=== PATIENT | male | born 1980 | race Caucasian/White ===

== ENCOUNTER → 2017-01-26 | Outpatient (CLI) | payer BC ==
[~2017-01-26] MED LIST: AMOXICILLIN/CLA1 TA1 PO; DOXYCYCLINE 10100 MG PO; EXCEDRIN1 TAB PO; LORTAB 5/500 501 TAB PO; NO HOME MEDICATIONS; PENICILLIN V500 MG PO; PERCOCET 5/321 UDTAB PO; ULTRAM 50MG TAB50 MG PO
== END ==
LOC: COL.RAD 11:07
DX: N45.1 Epididymitis (principal); N43.3 Hydrocele, unspecified

== ENCOUNTER 2017-06-02 17:08 | Emergency (ER) | payer BC ==
[~2017-06-02] VITALS: Ht 162.6 cm; Wt 81.2 kg
[2017-06-02 17:13] VITALS: TEMP 97.9
[2017-06-02] MEDS ORDERED: EFFEXOR XR75 MG/CAP PO (17:48)
[2017-06-02] MEDS ORDERED: NEURONTIN300 MG/CAP PO (17:48)
[2017-06-02] MEDS ORDERED: MEVACOR 20M20 MG/TAB PO (17:48)
[2017-06-02] MEDS ORDERED: ERGOCALCIFER50000 IU PO (17:49)
[2017-06-02] MEDS ORDERED: KLONOPIN 0.5MG0.5 MG PO (17:49)
[2017-06-02] MEDS ORDERED: INDERAL 20MG20 MG PO (17:49)
[2017-06-02] MEDS ORDERED: TORADOL 10MG TA10 MG PO (17:50)
[2017-06-02] MEDS ORDERED: COMPAZINE 110 MG/TAB PO (17:51)
[2017-06-02] MEDS ORDERED: PRILOSEC 20MG20 MG PO (17:51)
[2017-06-02 20:00] VITALS: BP 143/83; PULSE 88
== END 2017-06-02 20:01 | disposition home or self-care (01) ==
LOC: COL.ER 17:08
DX: G43.909 Migraine, unspecified, not intractable, without status migrainosus (principal); I10 Essential (primary) hypertension; F43.10 Post-traumatic stress disorder, unspecified
CPT/HCPCS: J1200; J1630; J2405; J7030

== ENCOUNTER 2017-12-07 10:20 | Observation (INO) | payer BC ==
[~2017-12-07] VITALS: Ht 162.6 cm; Wt 84.2 kg
[~2017-12-07 10:20] MED LIST changes: +COMPAZINE 110 MG/TAB PO; +EFFEXOR XR75 MG/CAP PO; +ERGOCALCIFER50000 IU PO; +INDERAL 20MG20 MG PO; +KLONOPIN 0.5MG0.5 MG PO; +MEVACOR 20M20 MG/TAB PO; +NEURONTIN300 MG/CAP PO; +PRILOSEC 20MG20 MG PO; +TORADOL 10MG TA10 MG PO
[2017-12-07 11:11] LABS: BASO % 0.5 % (0.0-2.0); EOS # 0.4 (0.0-0.7); EOS % 4.7 % (0-4.0); GRAN # 5.9 (1.4-6.5); HEMATOCRIT 38.1 % (42.0-52.0); HEMOGLOBIN 13.9 g/dl (13.5-18.0); LYMPH # 1.7 (1.2-3.4); LYMPH % 19.5 % (20.0-51.0); MEAN CELL VOLUME 88 fl (80.0-100.0); MEAN CORPUSCULAR HEMOGLOBIN 32 pg (27.0-31.0); MEAN CORPUSCULAR HGB CONC 37 g/dl (33.0-37.0); MEAN PLATELET VOLUME 10.6 fl (7.4-10.4); MONO # 0.6 (0.1-0.6); PLATELET COUNT 255 K/mm3 (130-400); RED BLOOD COUNT 4.32 M/mm3 (4.20-5.60); REDCELL DISTRIBUTION WIDTH-CV 12.7 % (11.5-14.5)
[2017-12-07 11:17] LABS: PROTHROMBIN TIME 11.4 SECONDS (9.7-12.8)
[2017-12-07] MEDS ORDERED: PRINIVIL10 MG PO (11:19)
[2017-12-07 11:24] LABS: ALBUMIN 4.5 gm/dL (3.5-5.0); BILIRUBIN,TOTAL 0.3 mg/dL (0.0-1.0); C-REACTIVE PROTEIN 0.7 mg/dL (0.0-0.9); CALCIUM 9.1 mg/dL (8.4-10.2); CREATININE, serum 1.17 mg/dL (0.66-1.25); POTASSIUM 3.6 mmol/L (3.4-5.0); TOTAL PROTEIN 7.8 gm/dL (6.4-8.2)
[2017-12-07 17:38] VITALS: BP 112/80; PULSE 73; TEMP 98.7
[2017-12-07 19:29] VITALS: BP 116/74; PULSE 72
[2017-12-08 00:38] VITALS: BP 100/58; PULSE 69; TEMP 97.8
[2017-12-08 04:03] VITALS: BP 102/67; PULSE 63; TEMP 97.9
[2017-12-08 06:24] LABS: CHOLESTEROL RISK RATIO 5.8
[2017-12-08 06:51] VITALS: BP 111/69; PULSE 66; TEMP 98.4
[2017-12-08] MEDS ORDERED: ASPIRIN 32325 MG/TAB PO (09:59)
== END 2017-12-08 13:00 | disposition home or self-care (01) ==
LOC: COL.ER 10:20 → MEDICAL 13:11
PROVIDERS: Family Medicine
DX: G45.9 Transient cerebral ischemic attack, unspecified (principal); G43.909 Migraine, unspecified, not intractable, without status migrainosus; I10 Essential (primary) hypertension; E78.5 Hyperlipidemia, unspecified; K21.9 Gastro-esophageal reflux disease without esophagitis; I25.2 Old myocardial infarction; F17.210 Nicotine dependence, cigarettes, uncomplicated; Z88.8 Allergy status to other drugs, medicaments and biological substances
CPT/HCPCS: G0378; G8978-GP; G8979-GP; G8987-GO; G8988-GO; G8999-GN; G9186-GN; J1644

== ENCOUNTER → 2018-01-03 | Outpatient (CLI) | payer BC ==
[~2018-01-03] MED LIST changes: +ASPIRIN 32325 MG/TAB PO; +PRINIVIL10 MG PO
== END ==
LOC: COL.CARD 12:31
DX: G45.9 Transient cerebral ischemic attack, unspecified (principal)

== ENCOUNTER 2018-04-12 23:39 | Emergency (ER) | payer BC ==
[~2018-04-12] VITALS: Ht 162.6 cm; Wt 76.4 kg
[2018-04-12 23:58] VITALS: TEMP 98.1
[2018-04-13] MEDS ORDERED: PERCOCET 325 MG1 TA2 PO (01:19)
[2018-04-13 01:48] VITALS: BP 120/87; PULSE 87
== END 2018-04-13 01:48 | disposition home or self-care (01) ==
LOC: COL.ER 23:39
DX: N50.811 Right testicular pain (principal); I10 Essential (primary) hypertension; E78.5 Hyperlipidemia, unspecified; Z79.82 Long term (current) use of aspirin

== ENCOUNTER → 2019-05-01 | Outpatient (CLI) | payer BC ==
[~2019-05-01] MED LIST changes: +PERCOCET 325 MG1 TA2 PO; +PERCOCET 325 MG1 TA3 PO; +PERCOCET 325 MG1 TAB PO
== END ==
LOC: COL.RAD 07:48
DX: K21.0 Gastro-esophageal reflux disease with esophagitis (principal); K25.9 Gastric ulcer, unspecified as acute or chronic, without hemorrhage or perforation
CPT/HCPCS: A9541

== ENCOUNTER 2019-08-30 08:08 | Day surgery (SDC) | payer BC ==
[2019-08-30] VITALS (9 sets, daily range): BP systolic 115–145; BP diastolic 63–95; PULSE 68–92; TEMP 97.7–98.5
[~2019-08-30] VITALS: Ht 162.6 cm; Wt 84.1 kg
[2019-08-30] MEDS ORDERED: MINIPRESS 1M1 MG/CAP PO (09:41)
[2019-08-30] MEDS ORDERED: FIORICET 325 MG1 TA1 PO (09:41)
[2019-08-30] MEDS ORDERED: PROTONIX 40MG T40 MG PO (09:44)
[2019-08-30] MEDS ORDERED: AJOVY225 MG/1.5 SQ (09:48)
[2019-08-30] MEDS ORDERED: UBRELVY50 MG PO (09:52)
[2019-08-30] MEDS ORDERED: KLONOPIN 1MG1 MG PO (09:53)
[2019-08-30] MEDS ORDERED: VIAGRA100 M1 PO (09:54)
--- NOTE | 2019-08-30 15:50 | NUR ---
Patient resting in bed. He has done well post op. Pain managed now, after roxicodone. pain mostly in his neck, we reviewed gas pain. He was up and ambulated the halls per ERAS. Patient tolerating clear liquids. Robotic lap sites x6. He was able to void. Vitals stable. Scds ble. Iv to INt
--- NOTE | 2019-08-30 18:08 | NUR ---
Patient independent in room. Tolerated clear liquid tray. vitals stable. Int. Vitals stable.
[2019-08-31 00:29] VITALS: BP 103/61; PULSE 76; TEMP 98.5
--- NOTE | 2019-08-31 00:30 | NUR ---
Patient has been doing well. He has been up moving in the room and walked in the hallway before bed. Patient denies nausea. Stated feeing hungry, applesauce given. Not passing flatus yet. He started getting a migraine, home medications given for pain and sleep. One site was having increased drainage at shift change. Removed bandaide and placed gauze to site. No more drainage noted at this time. No other changes at this time. Call light within reach.
[2019-08-31 04:43] VITALS: BP 123/88; PULSE 84; TEMP 97.9
--- NOTE | 2019-08-31 06:31 | NUR ---
Patient did not sleep much during the night. He keeps having neck and shoulder pain. He denies nausea. He has been up in the room moving around. Explained his diet he will be getting this morning. No other changes at this time. Call light within reach.
[2019-08-31 06:59] VITALS: BP 103/54; PULSE 87; TEMP 98.3
--- NOTE | 2019-08-31 09:30 | NUR ---
Patient alert and oriented, answers questions appropriately. See assessment. Abdomen soft, non tender, non distended. Bowel sounds active x4 quads. No flatus. No bowel movement. Incision sites with edges well approximated, no redness or drainage noted. Post op exercises reviewed with patient. No c/o at this time.
--- NOTE | 2019-08-31 09:31 | NUR ---
JACE met with the patient to complete initial intake. The patient lives in [place] with his family. The patient has a cane due to knee problems he has had in the past and is independent with ADLs. The patient's PCP is Dr. Claros and receives medications from [facility] with no difficulties. The patient does not have advanced directives in the EMR but state they are completed and designate his Alysha. The patient plans to return home at discharge with Alysha providing transportation. There are no additional needs at this time.
[2019-08-31] MEDS ORDERED: ROXICODONE 55 MG/TAB PO (10:50)
--- NOTE | 2019-08-31 11:14 | NUR ---
Dr Quintero here to see patient.
[2019-08-31 12:00] VITALS: BP 129/87; PULSE 76; TEMP 98.9
--- NOTE | 2019-08-31 13:30 | NUR ---
Discharge instructions reviewed with patient, verbalized understanding. Discharged ambulatory to auto/home with family at 1330.
== END 2019-08-31 13:30 | disposition home or self-care (01) ==
LOC: SDCO 08:08 → SURG 13:20 → SDCO 08-31 13:30
DX: K21.9 Gastro-esophageal reflux disease without esophagitis (principal); I10 Essential (primary) hypertension; G47.33 Obstructive sleep apnea (adult) (pediatric); G89.29 Other chronic pain; G43.909 Migraine, unspecified, not intractable, without status migrainosus; E78.00 Pure hypercholesterolemia, unspecified; F41.9 Anxiety disorder, unspecified; F32.9 Major depressive disorder, single episode, unspecified; F43.10 Post-traumatic stress disorder, unspecified; Z87.11 Personal history of peptic ulcer disease; Z90.89 Acquired absence of other organs; Z90.79 Acquired absence of other genital organ(s); Z79.899 Other long term (current) drug therapy; Z79.82 Long term (current) use of aspirin; Z88.8 Allergy status to other drugs, medicaments and biological substances; Z87.891 Personal history of nicotine dependence; Z86.73 Personal history of transient ischemic attack (TIA), and cerebral infarction without residual deficits; Z83.3 Family history of diabetes mellitus; Z80.9 Family history of malignant neoplasm, unspecified
CPT/HCPCS: OP; J0690; J1100; J1885; J2250; J2405; J2704; J2710; J3010; J7120

== ENCOUNTER 2019-09-07 16:32 | Inpatient (IN) | payer BC ==
[~2019-09-07] VITALS: Ht 162.6 cm; Wt 79.6 kg
[~2019-09-07 16:32] MED LIST changes: +AJOVY225 MG/1.5 SQ; +FIORICET 325 MG1 TA1 PO; +KLONOPIN 1MG1 MG PO; +MINIPRESS 1M1 MG/CAP PO; +PROTONIX 40MG T40 MG PO; +ROXICODONE 55 MG/TAB PO; +UBRELVY50 MG PO; +VIAGRA100 M1 PO
[2019-09-07 17:23] VITALS: BP 120/75; PULSE 89; TEMP 98.9
--- NOTE | 2019-09-07 17:39 | NUR ---
PT ADMITTED TO ROOM 347 AMBULATORY. IV TO RIGHT HAND. FLUIDS TO RUN @150 MLS /HR.
[2019-09-07 18:13] LABS: HEMATOCRIT 39.5 % (42.0-52.0); HEMOGLOBIN 14.2 g/dl (13.5-18.0); MEAN CELL VOLUME 89 fl (80.0-100.0); MEAN CORPUSCULAR HEMOGLOBIN 32 pg (27.0-31.0); MEAN CORPUSCULAR HGB CONC 36 g/dl (33.0-37.0); MEAN PLATELET VOLUME 10.8 fl (7.4-10.4); PLATELET COUNT 280 K/mm3 (130-400); RED BLOOD COUNT 4.46 M/mm3 (4.20-5.60); REDCELL DISTRIBUTION WIDTH-CV 11.9 % (11.5-14.5)
[2019-09-07 18:24] LABS: CALCIUM 9.6 mg/dL (8.4-10.2); CREATININE, serum 1.78 (0.66-1.25); POTASSIUM 4.3 mmol/L (3.4-5.0)
[2019-09-07 18:42] LABS: BAND 1 % (0-10); EOSINOPHIL 1 % (0-4); LYMPHOCYTE 24 % (20.0-51.0); NEUTROPHILS 68 % (42.0-75.2); PLATELET ESTIMATE NORMAL (NORMAL)
--- NOTE | 2019-09-07 21:00 | NUR ---
PT IN BED, ALERT AND ORIENTED X4. REPORTS EMESIS AFTER TAKING CLEAR LIQUID TRAY. ABD SOFT, NO PAIN, BOWEL SOUNDS VERY SCARCE. REPORTS PASSING FLATUS. IVF INFUSING TO RIGHT HAND WITHOUT REDNESS OR SWELLING. TAKES HS MED OF GABAPENTIN. MEDICATED WITH ZOFRAN 4MG IVP FOR NAUSEA. DENIES NEED FOR SLEEPING MED OR PAIN MEDS AT THIS TIME. REPORTS VOIDING WITHOUT PROBLEM, NO BM FOR "DAYS".
[2019-09-07 22:27] VITALS: BP 123/70; PULSE 72; TEMP 97.5
[2019-09-07 23:59] VITALS: BP 96/53; PULSE 75; TEMP 98.3
[2019-09-08 04:11] VITALS: BP 101/52; PULSE 65; TEMP 97.8
--- NOTE | 2019-09-08 04:34 | NUR ---
Resting quietly in bed, denies needs at this time.
--- NOTE | 2019-09-08 06:00 | NUR ---
Takes AM Protonix without problem. Still having nausea, no emesis during the night.
[2019-09-08 07:29] LABS: CALCIUM 8.9 mg/dL (8.4-10.2); CREATININE, serum 1.46 (0.66-1.25); POTASSIUM 4.5 mmol/L (3.4-5.0)
[2019-09-08 08:50] VITALS: BP 117/71; PULSE 72; TEMP 98.5
--- NOTE | 2019-09-08 09:45 | NUR ---
Patient alert and oriented, answers questions appropriately. See assessment. Abdomen rounded, distended. Bowel sounds hypoactive. +Flatus. No bowel movement since original surgery. +Nausea and emesis. No other c/o at this time.
--- NOTE | 2019-09-08 11:18 | NUR ---
Dr Quintero here to see patient.
[2019-09-08 12:03] VITALS: BP 110/53; PULSE 69; TEMP 98.2
--- NOTE | 2019-09-08 14:27 | NUR ---
The patient is a readmission. He had a robotic Yesica fundoplication a week ago. Per Dr. Quintero note, the patient will have a Gasografin swallow study this admission. SW met with the patient to complete initial intake. The patient lives in [place] with his Mehnaz. The patient is independent with ADLs and has a cane. The patient's PCP is Dr. Claros and patient receives medications from [facility]. The patient does not have advanced directives in the EMR but reports he does have them completed and designate his Mehnaz. The patient plans to return home at discharge. There are no additional needs at this time.
[2019-09-08 15:40] VITALS: BP 118/66; PULSE 72; TEMP 98.3
--- NOTE | 2019-09-08 19:30 | NUR ---
Report received from [facility]. Patient asleep during report. Will continue to monitor.
[2019-09-08 19:48] VITALS: BP 107/64; PULSE 81; TEMP 98.3
[2019-09-09 00:28] VITALS: BP 103/63; PULSE 64; TEMP 97.8
[2019-09-09 03:50] VITALS: BP 110/65; PULSE 60; TEMP 98.4
--- NOTE | 2019-09-09 05:31 | NUR ---
Patient has rested well throughout the night. Denies pain. Sips of water taken with medications and sparingly. Bowel sounds active x4 quadrants. Denies nausea. Medications given as ordered. IV to right hand patent and fluids continue as ordered. Denies any further needs. Will continue to monitor.
[2019-09-09 08:00] VITALS: BP 111/66; PULSE 67; TEMP 98.1
[2019-09-09 08:01] LABS: CALCIUM 9.1 mg/dL (8.4-10.2); CREATININE, serum 1.23 (0.66-1.25)
[2019-09-09 10:18] VITALS: BP 111/66; PULSE 67; TEMP 98.1
--- NOTE | 2019-09-09 11:59 | NUR ---
Patient rings call light and states "I need to check myself out, I need to leave." Dr Pollard notified, orders received. Discharge instructions reviewed with patient, discharged ambulatory to auto/home at 1155.
== END 2019-09-09 11:55 | disposition home or self-care (01) | DRG 641 ==
LOC: SURG 16:32
PROVIDERS: ADMIT Surgery
DX: E86.0 Dehydration (principal); K91.0 Vomiting following gastrointestinal surgery; T18.128A Food in esophagus causing other injury, initial encounter; I10 Essential (primary) hypertension; E78.00 Pure hypercholesterolemia, unspecified; F43.10 Post-traumatic stress disorder, unspecified; G43.909 Migraine, unspecified, not intractable, without status migrainosus; F17.210 Nicotine dependence, cigarettes, uncomplicated; Z88.8 Allergy status to other drugs, medicaments and biological substances; Z91.018 Allergy to other foods; Z91.09 Other allergy status, other than to drugs and biological substances
CPT/HCPCS: C9113; G0378; J2405; J2765; J3480; J7042

== ENCOUNTER 2019-09-20 07:05 | Day surgery (SDC) | payer BC ==
[~2019-09-20] VITALS: Ht 162.6 cm; Wt 75.4 kg
[2019-09-20] MEDS ORDERED: REGLAN 10MG10 MG/TAB PO (07:17)
[2019-09-20] MEDS ORDERED: PROMETHAZINE12.5 M5 PO (07:18)
[2019-09-20 07:47] VITALS: BP 107/74; PULSE 70; TEMP 97.8
[2019-09-20 07:58] LABS: BASO # 0.1 (0.0-0.2); BASO % 0.7 % (0.0-2.0); EOS # 0.7 (0.0-0.7); EOS % 8.2 % (0-4.0); GRAN # 4.6 (1.4-6.5); GRAN % 54.7 % (42.2-75.2); HEMOGLOBIN 13.1 g/dl (13.5-18.0); LYMPH # 2.3 (1.2-3.4); MEAN CELL VOLUME 89 fl (80.0-100.0); MEAN CORPUSCULAR HEMOGLOBIN 32 pg (27.0-31.0); MEAN CORPUSCULAR HGB CONC 36 g/dl (33.0-37.0); MEAN PLATELET VOLUME 10.9 fl (7.4-10.4); MONO # 0.7 (0.1-0.6); MONO % 8.2 % (1.7-9.3); PLATELET COUNT 272 K/mm3 (130-400); RED BLOOD COUNT 4.11 M/mm3 (4.20-5.60); REDCELL DISTRIBUTION WIDTH-CV 11.9 % (11.5-14.5)
[2019-09-20 07:59] LABS: HEMATOCRIT 36.6 % (42.0-52.0)
[2019-09-20 08:10] LABS: ALBUMIN 4.3 gm/dL (3.5-5.0); BILIRUBIN,TOTAL 0.5 mg/dL (0.0-1.0); CALCIUM 9.1 mg/dL (8.4-10.2); CREATININE, serum 1.2 (0.66-1.25); POTASSIUM 3.7 mmol/L (3.4-5.0); TOTAL PROTEIN 7.5 gm/dL (6.4-8.2)
--- NOTE | 2019-09-20 09:00 | NUR ---
Dr. Quintero called. Made aware of lab results glucose 200. States he would like second bolus to be switched to NS 500ml/hr. Verified and read back.
[2019-09-20 11:35] VITALS: BP 101/61; PULSE 64; TEMP 97.1
--- NOTE | 2019-09-20 11:35 | NUR ---
Patient brought back to bay [address] via cart. Ambulated to chair with one assist. Patient is awake and oriented, slightly drowsy. Denies pain or nausea. at bedside. Report recieved from Ami NESS. IV infusing without difficulty. Vital signs stable. Patient requesting water at this time. Follow up appointment made for one week per MD orders. Warm blanket provided, call gudino within reach. Will continue to monitor.
[2019-09-20 11:50] VITALS: BP 94/60; PULSE 70
--- NOTE | 2019-09-20 11:50 | NUR ---
Patient is tolerating drink without difficulty. States he feels ready to go home. Will continue to monitor.
[2019-09-20 12:05] VITALS: BP 97/53; PULSE 62
--- NOTE | 2019-09-20 12:10 | NUR ---
Discharge instructions and education packet reviewed with patient and family. Reinstated importance of liquid diet. Packet included on options for diet. Verbalized understanding. IV removed, intact. Patient to get dressed at this time.
--- NOTE | 2019-09-20 12:15 | NUR ---
Patient brought downstairs to lobby. To be driven home by . All belongings in hand.
== END 2019-09-20 12:15 | disposition home or self-care (01) ==
LOC: SDCO 07:05
PROVIDERS: Surgery
DX: T18.198A Other foreign object in esophagus causing other injury, initial encounter (principal); I10 Essential (primary) hypertension; E78.00 Pure hypercholesterolemia, unspecified; F43.10 Post-traumatic stress disorder, unspecified; F17.210 Nicotine dependence, cigarettes, uncomplicated; Z88.8 Allergy status to other drugs, medicaments and biological substances; Z86.73 Personal history of transient ischemic attack (TIA), and cerebral infarction without residual deficits; Z83.3 Family history of diabetes mellitus
CPT/HCPCS: J2250; J3010; J7030; J7042

== ENCOUNTER → 2019-09-27 | Outpatient (CLI) | payer BC ==
[~2019-09-27] MED LIST changes: +PHENERGAN25 MG RC; +PROMETHAZINE12.5 M5 PO; +REGLAN 10MG10 MG/TAB PO; +ZOFRAN8 MG PO
== END ==
LOC: COL.RAD 10:38
DX: K22.8 Other specified diseases of esophagus (principal); R11.2 Nausea with vomiting, unspecified; Z98.890 Other specified postprocedural states

== ENCOUNTER 2019-09-30 20:45 | Emergency (ER) | payer BC ==
[~2019-09-30] VITALS: Ht 162.6 cm; Wt 69.5 kg
[~2019-09-30 20:45] MED LIST changes: -PHENERGAN25 MG RC; -ZOFRAN8 MG PO
[2019-09-30 20:54] VITALS: BP 118/81; TEMP 98.8
[2019-09-30 21:33] LABS: BASO # 0.1 (0.0-0.2); BASO % 0.6 % (0.0-2.0); EOS # 0.5 (0.0-0.7); EOS % 5.6 % (0-4.0); GRAN # 4.4 (1.4-6.5); GRAN % 52.6 % (42.2-75.2); HEMOGLOBIN 12.5 g/dl (13.5-18.0); LYMPH # 2.8 (1.2-3.4); LYMPH % 33.8 % (20.0-51.0); MEAN CELL VOLUME 88 fl (80.0-100.0); MEAN CORPUSCULAR HEMOGLOBIN 31 pg (27.0-31.0); MEAN CORPUSCULAR HGB CONC 35 g/dl (33.0-37.0); MEAN PLATELET VOLUME 10.4 fl (7.4-10.4); MONO # 0.6 (0.1-0.6); MONO % 7.3 % (1.7-9.3); PLATELET COUNT 278 K/mm3 (130-400); RED BLOOD COUNT 4.01 M/mm3 (4.20-5.60); REDCELL DISTRIBUTION WIDTH-CV 11.8 % (11.5-14.5)
[2019-09-30 21:34] LABS: HEMATOCRIT 35.4 % (42.0-52.0)
[2019-09-30 21:52] LABS: ALANINE AMINOTRANSFERASE 25 U/L (4-49); ALBUMIN 4.8 gm/dL (3.5-5.0); ALKALINE PHOSPHATASE 100 U/L (50-136); ANION GAP 10 mmol/L (7-16); AST,SGOT 25 U/L (15-37); BILIRUBIN,TOTAL 0.5 mg/dL (0.0-1.0); BLOOD UREA NITROGEN 24 mg/dL (9-20); CALCIUM 9.7 mg/dL (8.4-10.2); CARBON DIOXIDE 23 mmol/L (22-30); CHLORIDE 104 mmol/L (98-107); CREATININE, serum 1.44 (0.66-1.25); GLUCOSE 92 mg/dL (74-106); LIPASE 70 U/L (23-300); POTASSIUM 3.5 mmol/L (3.4-5.0); SODIUM 137 mmol/L (137-145); TOTAL PROTEIN 8.1 gm/dL (6.4-8.2)
[2019-09-30 21:58] LABS: C-REACTIVE PROTEIN < 0.5 mg/dL (0.0-0.9)
[2019-09-30] MEDS ORDERED: ZOFRAN8 MG PO (22:46)
[2019-09-30] MEDS ORDERED: PHENERGAN25 MG RC (22:51)
[2019-10-01 00:50] VITALS: PULSE 72
== END 2019-10-01 00:55 | disposition home or self-care (01) ==
LOC: COL.ER 20:45
PROVIDERS: Emergency Medicine
DX: R11.2 Nausea with vomiting, unspecified (principal); I10 Essential (primary) hypertension; E78.5 Hyperlipidemia, unspecified; F43.10 Post-traumatic stress disorder, unspecified; K21.9 Gastro-esophageal reflux disease without esophagitis; Z79.899 Other long term (current) drug therapy; Z98.890 Other specified postprocedural states
CPT/HCPCS: J1630; J2550; J7030

== ENCOUNTER → 2019-10-12 | Outpatient (CLI) | payer BC ==
[~2019-10-12] MED LIST changes: +PHENERGAN25 MG RC; +ZOFRAN8 MG PO
== END ==
LOC: COL.RAD 06:43
DX: K21.9 Gastro-esophageal reflux disease without esophagitis (principal)
CPT/HCPCS: A9541

== ENCOUNTER → 2020-01-31 | Outpatient (CLI) | payer BC | LOC: ZCOL.LAB 09:59 | DX: Z20.828 Contact with and (suspected) exposure to other viral communicable diseases (principal) ==

== ENCOUNTER 2020-03-04 22:33 | Emergency (ER) | payer BC ==
[~2020-03-04] VITALS: Ht 162.6 cm; Wt 66.8 kg
[2020-03-05 00:01] LABS: BASO # 0.1 (0.0-0.2); BASO % 0.5 % (0.0-2.0); EOS # 0.4 (0.0-0.7); EOS % 4.6 % (0-4.0); GRAN # 5.3 (1.4-6.5); GRAN % 56.5 % (42.2-75.2); HEMATOCRIT 38.8 % (42.0-52.0); LYMPH # 3.2 (1.2-3.4); LYMPH % 33.4 % (20.0-51.0); MEAN CELL VOLUME 88 fl (80.0-100.0); MEAN CORPUSCULAR HEMOGLOBIN 32 pg (27.0-31.0); MEAN CORPUSCULAR HGB CONC 36 g/dl (33.0-37.0); MEAN PLATELET VOLUME 10.2 fl (7.4-10.4); MONO # 0.5 (0.1-0.6); MONO % 4.9 % (1.7-9.3); PLATELET COUNT 282 K/mm3 (130-400); RED BLOOD COUNT 4.42 M/mm3 (4.20-5.60); REDCELL DISTRIBUTION WIDTH-CV 12.1 % (11.5-14.5)
[2020-03-05 00:15] LABS: ALBUMIN 4.8 gm/dL (3.5-5.0); BILIRUBIN,TOTAL 0.3 mg/dL (0.0-1.0); CALCIUM 9.4 mg/dL (8.4-10.2); CREATININE, serum 0.97 (0.66-1.25); POTASSIUM 3.4 mmol/L (3.4-5.0); TOTAL PROTEIN 7.9 gm/dL (6.4-8.2)
[2020-03-05] MEDS ORDERED: ZOFRAN ODT4 MG PO (02:42)
[2020-03-05 03:29] VITALS: BP 111/66; PULSE 68
== END 2020-03-05 03:30 | disposition home or self-care (01) ==
LOC: COL.ER 22:33
PROVIDERS: Emergency Medicine
DX: R11.10 Vomiting, unspecified (principal); I10 Essential (primary) hypertension; U07.1 COVID-19; F17.200 Nicotine dependence, unspecified, uncomplicated; Z88.8 Allergy status to other drugs, medicaments and biological substances
CPT/HCPCS: J2060; J2405; J2765; J7030

== ENCOUNTER → 2020-07-24 | Outpatient (CLI) | payer BC ==
[~2020-07-24] MED LIST changes: +LIDODERM 5% PATC1 EA TP; +ZOFRAN ODT4 MG PO
== END ==
LOC: COL.LAB 09:26
DX: U07.1 COVID-19 (principal)

== ENCOUNTER 2020-08-20 11:47 | Emergency (ER) | payer BC ==
[~2020-08-20] VITALS: Ht 162.6 cm; Wt 75.0 kg
[~2020-08-20 11:47] MED LIST changes: -LIDODERM 5% PATC1 EA TP
[2020-08-20 12:08] VITALS: TEMP 98.3
[2020-08-20] MEDS ORDERED: LIDODERM 5% PATC1 EA TP (13:12)
[2020-08-20 13:34] VITALS: BP 125/77; PULSE 80
== END 2020-08-20 13:35 | disposition home or self-care (01) ==
LOC: COL.ER 11:47
DX: M25.511 Pain in right shoulder (principal); F17.210 Nicotine dependence, cigarettes, uncomplicated; Z98.890 Other specified postprocedural states; Z88.1 Allergy status to other antibiotic agents; Z88.5 Allergy status to narcotic agent

== ENCOUNTER → 2020-10-23 | Outpatient (CLI) | payer BC ==
[~2020-10-23] MED LIST changes: +LIDODERM 5% PATC1 EA TP
== END ==
LOC: COL.RAD 13:06
DX: M75.41 Impingement syndrome of right shoulder (principal)
CPT/HCPCS: J3301

== ENCOUNTER 2023-07-28 07:23 | Emergency (ER) | payer BC ==
[~2023-07-28] VITALS: Ht 162.6 cm; Wt 71.8 kg
[2023-07-28 07:25] VITALS: BP 182/123; PULSE 82; TEMP 97.8
[2023-07-28] MEDS ORDERED: Amoxicillin 500 MG CAP PO ONE (07:45)
[2023-07-28] MEDS ORDERED: AMOXICILLIN875 MG PO (07:49)
== END 2023-07-28 08:02 | disposition home or self-care (01) ==
LOC: COL.ER 07:23
DX: K04.7 Periapical abscess without sinus (principal); F17.210 Nicotine dependence, cigarettes, uncomplicated

== ENCOUNTER 2023-12-22 17:53 | Emergency (ER) | payer BC ==
[~2023-12-22] VITALS: Ht 162.6 cm; Wt 62.7 kg
[~2023-12-22 17:53] MED LIST changes: +AMOXICILLIN875 MG PO
[2023-12-22 17:55] VITALS: TEMP 99.5
[2023-12-22] MEDS ORDERED: NS 1,000 ML IV ONE (18:45)
[2023-12-22 19:04] LABS: BASO % 0.5 % (0.0-2.0); EOS # 0.3 K/mm3 (0.0-0.7); EOS % 3.6 % (0.0-4.0); GRAN # 5.4 K/mm3 (1.4-6.5); HEMATOCRIT 42.6 % (42.0-52.0); HEMOGLOBIN 15.4 g/dl (13.5-18.0); LYMPH # 1.3 K/mm3 (1.2-3.4); LYMPH % 16.2 % (20.0-51.0); MEAN CELL VOLUME 90 fl (80.0-100.0); MEAN CORPUSCULAR HEMOGLOBIN 33 pg (27-31); MEAN CORPUSCULAR HGB CONC 36 g/dl (33.0-37.0); MEAN PLATELET VOLUME 10.5 fl (7.4-10.4); MONO % 12.3 % (1.7-9.3); PLATELET COUNT 243 K/mm3 (130-400); RED BLOOD COUNT 4.73 M/mm3 (4.20-5.60); REDCELL DISTRIBUTION WIDTH-CV 12.2 % (11.5-14.5)
[2023-12-22 19:30] LABS: ALBUMIN 4.7 g/dL (3.5-5.0); BILIRUBIN,TOTAL 0.3 mg/dL (0.2-1.2); C-REACTIVE PROTEIN 0.57 mg/dL (0.00-0.50); CALCIUM 9.5 mg/dL (8.4-10.2); CREATININE, serum 1.27 mg/dL (0.72-1.25); POTASSIUM 3.7 mEq/L (3.5-4.5)
[2023-12-22 20:51] VITALS: BP 155/125; PULSE 105
== END 2023-12-22 20:59 | disposition home or self-care (01) ==
LOC: COL.ER 17:53
PROVIDERS: Emergency Medicine
DX: M54.50 Low back pain, unspecified (principal); E86.0 Dehydration
CPT/HCPCS: J7030